=== PATIENT | female | born 1950 | race Caucasian/White ===

== ENCOUNTER 2018-07-15 13:04 | Emergency (ER) | payer OTHER ==
[~2018-07-15] VITALS: Ht 154.9 cm; Wt 54.4 kg
[~2018-07-15 13:04] MED LIST: FOS70 PO
[2018-07-15 13:08] VITALS: BP 136/77
--- NOTE | 2018-07-15 13:13 | NUR ---
PT AMB W/O ASST TO ER BED 2
--- NOTE | 2018-07-15 13:39 | NUR ---
PT BIB FAMILY C/O OF FEVER, CONSTIPATION, HEAD PAIN SINCE LAST NIGHT.NO BLURRY VISION, NO TRAUMA AT THIS TIME. AFRIBILE AT THIS TIME, TEMP 97.1 SKIN IS INTACT, PINK/WARM/DRY; AAOX4, PERRL, WITH EVEN AND STEADY GAIT; LUNGS CLEAR BL, BREATHING UNLABORED; HR EVEN AND REGULAR, BL PERIPHERAL PULSES PRESENT. NO TENDERNESS TO PALPATION. PT DENIES ANY FEVER, CP, SOB, OR COUGH AT THIS TIME; PT STATES 5/10 PAIN AT THIS TIME; VSS; PATIENT POSITIONED FOR COMFORT; HOB ELEVATED; BEDRAILS UP X2; BED DOWN.
[2018-07-15] MEDS ORDERED: SYN.075 PO (14:00)
[2018-07-15] MEDS ORDERED: OSC500 PO (14:00)
[2018-07-15] MEDS ORDERED: ASPI-1718 PO (14:00)
[2018-07-15] MEDS ORDERED: VITA1TAB44 PO (14:00)
[2018-07-15] MEDS ORDERED: SIMV10TA1 PO (14:00)
[2018-07-15] MEDS ORDERED: VITD1000 PO (14:00)
[2018-07-15] MEDS ORDERED: KETOROLAC 60 MG/2 ML VIAL IM ONE (14:00)
[2018-07-15] MEDS ORDERED: ONDANSETRON 4 MG ODT PO ONE (14:00)
[2018-07-15] MEDS ORDERED: BENA20TA PO (14:00)
[2018-07-15 14:44] VITALS: BP 116/73
--- NOTE | 2018-07-15 14:45 | NUR ---
Patient discharged with v/s stable. Written and verbal after care instructions given and explained. Patient alert, oriented and verbalized understanding of instructions. Ambulatory with steady gait. All questions addressed prior to discharge. ID band removed. Patient advised to follow up with PMD. Rx of MOTRIN, CIPRO AND ZOFRAN given. Patient educated on indication of medication including possible reaction and side effects. Opportunity to ask questions provided and answered.
== END 2018-07-15 14:45 | disposition home or self-care (01) ==
LOC: MED 13:04
DX: R51 Headache (principal); N39.0 Urinary tract infection, site not specified; I10 Essential (primary) hypertension; E07.9 Disorder of thyroid, unspecified; Z79.82 Long term (current) use of aspirin; Z79.899 Other long term (current) drug therapy
CPT/HCPCS: 81002; 96372; 99283; J1885; Q0162

== ENCOUNTER 2019-01-14 18:49 | Emergency (ER) | payer OTHER ==
[~2019-01-14] VITALS: Ht 154.9 cm; Wt 54.4 kg
[~2019-01-14 18:49] MED LIST changes: +ASPI-1718 PO; +BENA20TA PO; +OSC500 PO; +SIMV10TA1 PO; +SYN.075 PO; +VITA1TAB44 PO; +VITD1000 PO
[2019-01-14 18:57] VITALS: BP 155/84
--- NOTE | 2019-01-14 19:03 | NUR ---
PT WHEELCHAIRED TO BED 7
--- NOTE | 2019-01-14 19:05 | NUR ---
IV INITIATED TO RAC 20G, INTACT AND PATENT. 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
--- NOTE | 2019-01-14 19:05 | NUR ---
68 Y/O FEMALE PRESENTS TO ED, C/O OF CHEST PAIN, PRESSURE 10/10. PT STATES SHE HAS BEEN HAVING CHEST PAIN SINCE THIS MORNING. PAIN INITIATES FROM RIGHT AXILLARY AND RADIATES TO STERNUM REGION OF THE CHEST. NO SOB. LUNG SOUNDS BILATERALLY CLEAR. < 3 SECS CAP REFILL ON ALL EXTREMITIES, NO EDEMA. PT TOOK AN ASPIRIN 4 HOURS [employer], MEDICATION INEFFECTIVE. PT HAS HX OF HTN, HYPOTHYROID. PT VSS. DR LEON AWARE. WILL CONTINUE TO MONITOR.
--- NOTE | 2019-01-14 19:07 | NUR ---
EKG AT BEDSIDE BY ROSA MCNALLY
[2019-01-14 19:45] LABS: BASOPHILS % (AUTO) 0.3 % (0.0-2.0); EOSINOPHILS # (AUTO) 0.2 K/uL (0-0.4); EOSINOPHILS % (AUTO) 1.8 % (0.0-4.0); HEMATOCRIT 39.3 % (36-48); LYMPHOCYTES # (AUTO) 3.2 K/uL (2.5-16.5); LYMPHOCYTES % (AUTO) 34.6 % (20.5-51.1); MEAN CORPUSCULAR HEMOGLOBIN 30 pg (27-31); MEAN CORPUSCULAR HGB CONC 33 g/dL (33-37); MEAN CORPUSCULAR VOLUME 89.7 fL (80-94); MONOCYTES % (AUTO) 10.7 % (1.7-9.3); NEUTROPHILS % (AUTO) 52.6 % (42.2-75.2); PLATELET COUNT (AUTO) 208 K/uL (140-450); RED BLOOD CELL COUNT(AUTO) 4.38 MIL/uL (4.20-5.40); RED CELL DISTRIBUTION WIDTH 13.4 % (11.6-13.7); WHITE BLOOD COUNT (AUTO) 9.4 K/uL (4.8-10.8)
[2019-01-14 19:48] LABS: ANION GAP 14.2 (8-16); CARBON DIOXIDE 26.4 mmol/L (21-32); CREATININE 1.1 mg/dL (0.6-1.3); POTASSIUM 3.6 mmol/L (3.5-5.1)
[2019-01-14 19:53] LABS: ALBUMIN 3.8 g/dL (3.4-5.0); TOTAL BILIRUBIN 0.3 mg/dL (0.0-1.0)
[2019-01-14 21:19] LABS: APPEARANCE,URINE CLEAR (CLEAR); BILIRUBIN,URINE NEGATIVE (NEGATIVE); BLOOD, URINE NEGATIVE (NEGATIVE); COLOR,URINE YELLOW (YELLOW); LEUKOCYTE ESTERASE ,URINE TRACE (NEGATIVE); NITRITE, URINE NEGATIVE (NEGATIVE); PH,URINE 8.5 (5.0-9.0); UGLUCOSE NEGATIVE (NEGATIVE)
[2019-01-14 21:24] LABS: RBC,URINE 0 /HPF (0-5); WBC,URINE 0-5 /HPF (0-5)
--- NOTE | 2019-01-14 21:25 | NUR ---
PT IS AWAKE, LAYING ON BED. DAUGHTER AT BEDSIDE. PT C/O OF R CHEST PAIN 12/23. MEDICATED WITH TYLENOL PER MD'S ORDER. PT VSS. DR LEON AWARE. WILL CONTINUE TO MONITOR.
[2019-01-14] MEDS ORDERED: ACETAMINOPHEN 325 MG TAB PO ONE (21:35)
--- NOTE | 2019-01-14 23:25 | NUR ---
PT AWAKE, LAYING ON BED. DAUGHTER AT BEDSIDE. C/O OF R CHEST PAIN 12/23. GAVE PT NORCO PER MD'S ORDER. PT VSS. DR LEON AWARE. WILL CONTINUE TO MONITOR.
[2019-01-14] MEDS ORDERED: HYDROcodone/APAP 5/325 MG 1 TAB TAB PO ONE (23:35)
--- NOTE | 2019-01-15 01:32 | NUR ---
Note umesh in ED - 01/15/19 at 0138 by AMARILIS PT DISCHARGED WITH PAPERWORK. NO RX PROVIDED. EDUCATED PT REGARDING DISCHARGE DIAGNOSIS. PT VERBALIZED UNDERSTANDING OF TEACHING. PT VSS. ALL QUESTIONS ANSWERED.
[2019-01-15 02:21] VITALS: BP 131/78
--- NOTE | 2019-01-15 02:21 | NUR ---
PT DISCHARGED WITH PAPERWORK. RX FLEXERIL, EDUCATED PT REGARDING MEDICATIONS AND SIDE EFFECTS. EDUCATED PT REGARDING DISCHARGE DIAGNOSIS. PT VERBALIZED UNDERSTANDING OF TEACHING. TOLD PT TO FOLLOW UP WITH PCP AND WHEN TO RETURN TO ED. PT VSS. ALL QUESTIONS ANSWERED.
== END 2019-01-15 02:21 | disposition home or self-care (01) ==
LOC: MED 18:49
DX: M62.838 Other muscle spasm (principal); I10 Essential (primary) hypertension; E03.9 Hypothyroidism, unspecified; Z79.899 Other long term (current) drug therapy; Z79.82 Long term (current) use of aspirin
CPT/HCPCS: 36415; 71045; 80053; 81001; 84484; 85025; 99284; Q0092

== ENCOUNTER 2021-06-21 15:11 | Emergency (ER) | payer OTHER ==
[~2021-06-21] VITALS: Ht 154.9 cm; Wt 61.2 kg
[~2021-06-21 15:11] MED LIST changes: +ALEN70TA85 PO; -ASPI-1718 PO; +ASPI-1822 PO; -FOS70 PO
[2021-06-21 15:28] VITALS: BP 126/84
[2021-06-21] MEDS ORDERED: KETOROLAC 60 MG/2 ML VIAL IM ONE (15:40)
--- NOTE | 2021-06-21 17:00 | NUR ---
70/F BIB WITH C/O LOWER BACK PAIN X2 HOURS. [place] THE [place]ARK AND FELL BACKWARDS ONTO HER BACK. DENIES NECK OR HEAD PAIN, DENIES LOC, DENIES TAKING PAIN MEDS. PATIENT UNABLE TO AMBULATE DUE TO PAIN, W/C ASSISTED INTO ER.
[2021-06-21] MEDS ORDERED: IBUP-2213 PO (17:38)
[2021-06-21] MEDS ORDERED: ACET-8386 PO (17:38)
[2021-06-21 17:55] VITALS: BP 126/84
--- NOTE | 2021-06-21 17:55 | NUR ---
Patient discharged with v/s stable. Written and verbal after care instructions ABOUT LUMBAR SPINE FRACTURE given and explained. Patient alert, oriented and verbalized understanding of instructions. Wheel Chair Assisted with to car. All questions addressed prior to discharge. ID band removed. Patient advised to follow up with PMD. Rx of NORCO 5-325 AND IBUPROFEN given. Patient educated on indication of medication including possible reaction and side effects. Opportunity to ask questions provided and answered.
== END 2021-06-21 17:55 | disposition home or self-care (01) ==
LOC: MED 15:11
DX: S32.020A Wedge compression fracture of second lumbar vertebra, initial encounter for closed fracture (principal); I10 Essential (primary) hypertension; E03.9 Hypothyroidism, unspecified; Z79.899 Other long term (current) drug therapy; Z79.82 Long term (current) use of aspirin; W18.39XA Other fall on same level, initial encounter; Y92.89 Other specified places as the place of occurrence of the external cause; Y93.89 Activity, other specified; Y99.8 Other external cause status
CPT/HCPCS: 72110; 96372; 99283; J1885

== ENCOUNTER 2024-04-04 12:12 | Emergency (ER) | payer OTHER ==
[~2024-04-04] VITALS: Ht 154.9 cm; Wt 57.6 kg
[~2024-04-04 12:12] MED LIST changes: +ACET-8905 PO; +CHOL100084 PO; +IBUP-2213 PO; +SIMV-371 PO; -SIMV10TA1 PO; -VITD1000 PO
[2024-04-04 12:20] VITALS: BP 134/59; PULSE 58; RESP 16; TEMP 97; O2SAT 99
== END 2024-04-04 13:35 | disposition home or self-care (01) ==
LOC: MED 12:12
DX: R43.2 Parageusia (principal); R09.89 Other specified symptoms and signs involving the circulatory and respiratory systems; E03.9 Hypothyroidism, unspecified; I10 Essential (primary) hypertension; Z79.899 Other long term (current) drug therapy; Z79.82 Long term (current) use of aspirin
CPT/HCPCS: 99281